=== PATIENT | female | born 1985 | race Caucasian/White ===

== ENCOUNTER 2017-11-16 11:51 | Emergency (ER) | payer MEDICAID ==
[~2017-11-16] VITALS: Ht 167.6 cm; Wt 149.7 kg
[2017-11-16 11:57] VITALS: BP_SYST 171
--- NOTE | 2017-11-16 12:04 | NUR ---
Patient to ER bed 7 to gown for evaluation. Side rails up. Report given to Una ROSE.
--- NOTE | 2017-11-16 12:07 | NUR ---
Pt brought by self,A&Ox4, pt c/o L lower back pain radiating to L knee , denies N/V , denies urinary symptoms at this time but states she had an UTI recently, skin pink and warm, respirations even and unlabored.
--- NOTE | 2017-11-16 12:07 | NUR ---
Dr Anthony at bedside examining patient
--- NOTE | 2017-11-16 12:10 | NUR ---
Pt states she can not urinate at this time, pt has an IUD. MD Dr Anthony agreeable to cover pt for X-ray.
[2017-11-16] MEDS: fentaNYL CITRATE/PF 100 MCG/2 ML AMP IM ONE (12:23)
--- NOTE | 2017-11-16 12:35 | NUR ---
Pt medicated as ordered ,well tolerated.
--- NOTE | 2017-11-16 13:30 | NUR ---
Pt on stable condition, VSS, resting at this time
[2017-11-16] MEDS: ONDANSETRON 4 MG ODT TAB PO ONE (14:32)
[2017-11-16] MEDS: HYDROmorphone 1 MG INJ. 1 MG/ML AMPUL IM ONE (14:37)
[2017-11-16 15:04] VITALS: BP_SYST 137
--- NOTE | 2017-11-16 15:04 | NUR ---
Patient given written and verbal discharge instructions and verbalizes understanding. ER MD discussed with patient the results and treatment provided. Patient in stable condition. ID arm band removed. Rx of Cana, Soma,Motrin given. Patient educated on pain management and to follow up with PMD. Pain Scale 3/10 tolerable for pt. Opportunity for questions provided and answered.
== END 2017-11-16 15:04 | disposition home or self-care (01) ==
LOC: SED 11:51
DX: M54.30 Sciatica, unspecified side (principal)
CPT/HCPCS: 72100; 81025; 96372; 99284; J1170; J3010; Q0162

== ENCOUNTER 2019-11-12 20:42 | Emergency (ER) | payer MEDICAID ==
[~2019-11-12] VITALS: Ht 170.2 cm; Wt 158.8 kg
[2019-11-12 21:31] VITALS: BP_SYST 162
--- NOTE | 2019-11-12 21:37 | NUR ---
Pt to ER waiting room in stable condition.
--- NOTE | 2019-11-12 22:26 | NUR ---
Urine specimen sent to lab.
--- NOTE | 2019-11-12 22:56 | NUR ---
Pt wheeled to bed hallway for evaluation
--- NOTE | 2019-11-13 | NUR ---
Pt C/O Left Knee pain and chronic back pain since Wednesday S/P fall. Pt denies any KO and states she landed directly on her knee. Report increased pain when weight bearing and difficulty ambulating. Denies taking any pain medications for relief, no other complaints at this time. Will continue to monitor.
--- NOTE | 2019-11-13 02:00 | NUR ---
ER Dr. Soni at bedside examining patient.
[2019-11-13] MEDS: KETOROLAC TROMETHAMINE 60 MG/2 ML VIAL IM ONE (02:18)
[2019-11-13 03:34] VITALS: BP_SYST 153
--- NOTE | 2019-11-13 03:39 | NUR ---
Patient given written and verbal discharge instructions and verbalizes understanding. ER MD discussed with patient the results and treatment provided. Patient in stable condition. ID arm band removed. Rx of Motrin and Tylenol given. Patient educated on pain management and to follow up with PMD. Pain Scale 0. Opportunity for questions provided and answered. Medication side effect fact sheet provided.
== END 2019-11-13 03:34 | disposition home or self-care (01) ==
LOC: SED 20:42
DX: S83.91XA Sprain of unspecified site of right knee, initial encounter (principal); W01.0XXA Fall on same level from slipping, tripping and stumbling without subsequent striking against object, initial encounter; Y93.89 Activity, other specified; Y92.89 Other specified places as the place of occurrence of the external cause; Y99.8 Other external cause status
CPT/HCPCS: 29505; 73564; 81025; 96372; 99283; J1885

== ENCOUNTER 2020-04-24 21:19 | Emergency (ER) | payer MEDICAID, SELFPAY ==
[~2020-04-24] VITALS: Ht 167.6 cm; Wt 158.8 kg
[2020-04-24 21:32] VITALS: BP_SYST 182
== END 2020-04-25 | disposition left against medical advice (07) ==
LOC: SED 21:19
DX: B34.9 Viral infection, unspecified (principal); Z20.828 Contact with and (suspected) exposure to other viral communicable diseases
CPT/HCPCS: 81025; 99283; U0003

== ENCOUNTER 2020-04-25 17:10 | Emergency (ER) | payer MEDICAID, SELFPAY ==
[~2020-04-25] VITALS: Ht 167.6 cm; Wt 139.7 kg
--- NOTE | 2020-04-25 17:16 | NUR ---
Patient to ER bed 05 to gown for evaluation. Side rails up.
--- NOTE | 2020-04-25 17:18 | NUR ---
Pt brought by self, A&Ox4, pt presents to ER with headache and bodyaches, ot also c/o high blood pressure, pt was seen yesterday at ER and tested for covid due to exposure, pending results, pt respirations even and unlabored, afebrile, skin pink and warm,denies chest pain, will cont to monitor.
--- NOTE | 2020-04-25 17:25 | NUR ---
Dr Dubose at bedside examining patient
[2020-04-25 17:26] VITALS: BP_SYST 157
[2020-04-25] MEDS ORDERED: LISINOPRIL 10 MG TABLET (PRINIVIL) PO ONE (17:45)
[2020-04-25] MEDS ORDERED: NITROFURANTOIN MONOHYD/M-CRYST 100 MG CAPSULE PO ONE (17:45)
[2020-04-25 18:03] LABS: BASOPHILS # (AUTO) 0.1 K/uL (0.0-0.2); BASOPHILS % (AUTO) 0.8 % (0.0-2.0); EOSINOPHILS # (AUTO) 0.1 K/uL (0.0-0.4); EOSINOPHILS % (AUTO) 1.7 % (0.0-4.0); HEMATOCRIT 41.6 % (36-48); LYMPHOCYTES # (AUTO) 1.5 K/uL (1.0-5.5); LYMPHOCYTES % (AUTO) 23.3 % (20.5-51.5); MEAN CORPUSCULAR HEMOGLOBIN 31 pg (27-31); MEAN CORPUSCULAR HGB CONC 34 % (32-36); MEAN CORPUSCULAR VOLUME 91 fL (79.0-98.0); MONOCYTES # (AUTO) 0.4 K/uL (0.0-1.0); NEUTROPHILS # (AUTO) 4.3 K/uL (1.8-7.7); NEUTROPHILS % (AUTO) 68.2 % (40.0-70.0); PLATELET COUNT (AUTO) 115 K/uL (130-430); RED BLOOD CELL COUNT(AUTO) 4.57 MIL/uL (4.2-6.2); RED CELL DISTRIBUTION WIDTH 13.4 % (9.0-15.0); WHITE BLOOD COUNT (AUTO) 6.3 K/uL (4.8-10.8)
[2020-04-25 18:09] LABS: CALCIUM 8.4 mg/dL (8.4-11.0); CREATININE 0.99 mg/dL (0.55-1.30); POTASSIUM 3.4 mmol/L (3.5-5.1)
[2020-04-25 18:20] LABS: ALBUMIN 3.2 g/dL (3.4-4.8); TOTAL BILIRUBIN 0.4 mg/dL (0.0-1.0)
--- NOTE | 2020-04-25 18:45 | NUR ---
# 20 gauge angiocath placed to right arm . Use of asceptic technique. Opsite placed over site. Blood return noted. Flushed with 10 cc of normal saline. No evidence of infiltration noted. Patient tolerated well.
[2020-04-25] MEDS ORDERED: hydrALAZINE HCL 20 MG/ML VIAL IVP ONE ×2 (19:00→19:45)
[2020-04-25] MEDS ORDERED: ENALAPRILAT DIHYDRATE 1.25 MG/ML VIAL IVP ONE (19:00)
--- NOTE | 2020-04-25 19:00 | NUR ---
Medicated per MD order.
--- NOTE | 2020-04-25 19:13 | NUR ---
endorsed care to Judy ROSE
--- NOTE | 2020-04-25 19:20 | NUR ---
ASSUMED CARE FROM YUMIKO ROSE. PATIENT LYING ON GURNEY IN ROOM 5 ON CELLULAR DEVICE CONNECTED TO TECHNICAL ADMINISTRATOR. PATIENT HAS COMPLAINT OF HYPERTENSION FOR 2 DAYS. PATIENT A&OX4. GCS 15. BILATERAL PUPILS WITH BRISK PERRLA 3/4MM. NO PALENESS NOTED TO CONJUCTIVA OR MUCOUS MEMBRANES. FACIAL SYMMETRY NOTED. NO TRACHEAL DEVIATION NOTED. PATIENT STATES CHEST PRESSURE BUT DENIES CHEST PAIN. LUNGS CTAB WITH NO USE OF ACCESSORY MUSCLES. ABDOMEN SOFT, OBESE AND NONTENDER WITH NORMO-ACTIVE BOWEL SOUNDS AUSCULTATED IN ALL FOUR QUADRANTS. PATIENT DENIES NAUSEA, VOMITING, DIARRHEA, PAIN WITH URINATION AND URINARY FREQUENCY. PMSC NOTED IN ALL FOUR EXTREMITIES. 20G IV THAT FLUSHES WITH EASE NOTED TO RIGHT ARM. ALL OTHER SKIN CLEAN DRY AND INTACT. BED LOCKED, IN LOWEST POSITION WITH SIDE RAILS UP FOR SAFETY. AWAITING FURTHER ORDERS AND WILL CONTINUE TO MONITOR.
--- NOTE | 2020-04-25 19:47 | NUR ---
PATIENT MEDICATED PER MD ORDERS FOR BLOOD PRESSURE OF 180/103MMHG.
[2020-04-25 20:35] VITALS: BP_SYST 120
--- NOTE | 2020-04-25 20:35 | NUR ---
Patient given written and verbal discharge instructions and verbalizes understanding. ER MD SHERIDAN discussed with patient the results and treatment provided. Patient in stable condition. ID arm band removed. IV catheter removed intact and dressing applied, no active bleeding. Rx of NORVASC AND LISINOPRIL given. Patient educated on pain management and to follow up with PMD. Pain Scale 0/10. Opportunity for questions provided and answered. Medication side effect fact sheet provided.
== END 2020-04-25 20:35 | disposition home or self-care (01) ==
LOC: SED 17:10
DX: Z03.818 Encounter for observation for suspected exposure to other biological agents ruled out (principal)
CPT/HCPCS: 36415; 71045; 80053; 85025; 93005; 96374; 96375; 96376; 99285; J0360

== ENCOUNTER 2021-11-08 17:01 | Emergency (ER) | payer MEDICAID, SELFPAY ==
[~2021-11-08] VITALS: Ht 170.2 cm; Wt 158.8 kg
--- NOTE | 2021-11-08 17:01 | NUR ---
Pt brought by self, A&Ox4, pt presents to ER with headache, states possible high blood pressure and cough, pt afebrile,skin pink and warm, cap refill <3, VSS, respirations even and unlabored.
[2021-11-08 17:30] VITALS: BP_SYST 159
--- NOTE | 2021-11-08 17:36 | NUR ---
covid chris swab performed outside in tent and sent to lab
--- NOTE | 2021-11-08 17:50 | NUR ---
Dr Dubose evaluating patient in the tent
[2021-11-08] MEDS ORDERED: LISINOPRIL 10 MG TABLET (PRINIVIL) PO ONE (18:00)
[2021-11-08] MEDS ORDERED: LISINOPRIL 10 MG TABLET (PRINIVIL) ONE (18:03)
[2021-11-08] MEDS ORDERED: LISI20TA30 PO (18:07)
[2021-11-08 19:44] VITALS: BP_SYST 150
--- NOTE | 2021-11-08 19:46 | NUR ---
Patient given written and verbal discharge instructions and verbalizes understanding. ER MD discussed with patient the results and treatment provided. Patient in stable condition. ID arm band removed. Rx of lisinopril given. Patient educated on pain management and to follow up with PMD. Pain Scale 0/10. Opportunity for questions provided and answered. Medication side effect fact sheet provided.
== END 2021-11-08 19:46 | disposition home or self-care (01) ==
LOC: SED 17:01
DX: R51.9 Headache, unspecified (principal); I10 Essential (primary) hypertension; Z20.822 Contact with and (suspected) exposure to COVID-19
CPT/HCPCS: 36415; 99283

== ENCOUNTER 2022-08-21 15:52 | Emergency (ER) | payer MEDICAID ==
[~2022-08-21] VITALS: Ht 170.2 cm; Wt 158.8 kg
[~2022-08-21 15:52] MED LIST: LISI20TA30 PO
[2022-08-21 16:34] VITALS: BP_SYST 162
[2022-08-21] MEDS ORDERED: DEXAMETHASONE SOD PHOSPHATE 10 MG/ML VIAL IM ONE (18:45)
[2022-08-21] MEDS ORDERED: FAMOTIDINE 20 MG TABLET PO ONE (19:00)
== END 2022-08-21 20:10 | disposition home or self-care (01) ==
LOC: SED 15:52
DX: T78.40XA Allergy, unspecified, initial encounter (principal); R22.0 Localized swelling, mass and lump, head; Z79.899 Other long term (current) drug therapy; X58.XXXA Exposure to other specified factors, initial encounter
CPT/HCPCS: 99283; 96372; J1100

== ENCOUNTER 2023-03-01 17:55 | Emergency (ER) | payer MEDICAID ==
[~2023-03-01] VITALS: Ht 170.2 cm; Wt 176.9 kg
[2023-03-01 17:58] VITALS: BP_SYST 162
--- NOTE | 2023-03-01 18:06 | NUR ---
SEEN BY ERMD AT THIS TIME
--- NOTE | 2023-03-01 18:10 | NUR ---
Pt BIB self. C/O high blood pressure. Pt has hx of HTN but does not take RX as prescribed. pt AAOX4. does not complain of pain. denies SOB. denies chest pain. pt has steady gait. skin dry and intact. PERRLA. pt in bed with side rails up.
--- NOTE | 2023-03-01 18:12 | NUR ---
ER at bedside examining patient.
[2023-03-01] MEDS ORDERED: LISI20TA30 PO (18:55)
--- NOTE | 2023-03-01 19:08 | NUR ---
Patient given written and verbal discharge instructions and verbalizes understanding. ER MD discussed with patient the results and treatment provided. Patient in stable condition. ID arm band removed. Rx of LISINOPRIL given. Patient educated on pain management and to follow up with PMD. Opportunity for questions provided and answered. Medication side effect fact sheet provided.
[2023-03-01 19:09] VITALS: BP_SYST 162
== END 2023-03-01 19:09 | disposition home or self-care (01) ==
LOC: SED 17:55
DX: I10 Essential (primary) hypertension (principal); R51.9 Headache, unspecified; R20.2 Paresthesia of skin; E66.9 Obesity, unspecified; Z68.44 Body mass index [BMI] 60.0-69.9, adult; Z79.899 Other long term (current) drug therapy
CPT/HCPCS: 99283

== ENCOUNTER 2023-03-27 19:41 | Emergency (ER) | payer MEDICAID ==
[~2023-03-27] VITALS: Ht 170.2 cm; Wt 176.9 kg
[2023-03-27] MEDS ORDERED: HYDROcodone/ACETAMIN 5-325 MG TAB (NORCO/ VICODIN) PO ONE (20:00)
[2023-03-27] MEDS ORDERED: KETOROLAC TROMETHAMINE 60 MG/2 ML VIAL IM ONE (20:00)
[2023-03-27 20:20] LABS: BASOPHILS # (AUTO) 0.1 K/uL (0.0-0.2); EOSINOPHILS # (AUTO) 0.2 K/uL (0.0-0.4); EOSINOPHILS % (AUTO) 2.4 % (0.0-4.0); HEMATOCRIT 41.7 % (36-48); HEMOGLOBIN 14.6 g/dL (12.0-16.0); LYMPHOCYTES # (AUTO) 1.5 K/uL (1.0-5.5); LYMPHOCYTES % (AUTO) 16.2 % (20.5-51.5); MEAN CORPUSCULAR HEMOGLOBIN 31 pg (27-31); MEAN CORPUSCULAR HGB CONC 35 % (32-36); MEAN CORPUSCULAR VOLUME 89 fL (79.0-98.0); MONOCYTES # (AUTO) 0.5 K/uL (0.0-1.0); MONOCYTES % (AUTO) 5.7 % (1.7-9.3); NEUTROPHILS # (AUTO) 6.8 K/uL (1.8-7.7); NEUTROPHILS % (AUTO) 74.7 % (40.0-70.0); PLATELET COUNT (AUTO) 244 K/uL (130-430); RED BLOOD CELL COUNT(AUTO) 4.69 MIL/uL (4.2-6.2); RED CELL DISTRIBUTION WIDTH 13.6 % (9.0-15.0); WHITE BLOOD COUNT (AUTO) 9.1 K/uL (4.8-10.8)
--- NOTE | 2023-03-27 20:20 | NUR ---
Patient to ER bed 03 to gown for evaluation. Side rails up. Report given to ROSE GUADARRAMA.
[2023-03-27 20:25] LABS: ANION GAP 8 (5-15); CALCIUM 7.9 mg/dL (8.4-11.0); CHLORIDE 103 mmol/L (98-107); CREATININE 0.83 mg/dL (0.55-1.30); GFR AFRICAN AMERICAN 100 mL/min (>90); GLUCOSE 153 mg/dL (70-99); UREA NITROGEN, BLOOD 10 mg/dL (8-21)
[2023-03-27 20:39] LABS: ALANINE AMINOTRANSFERASE 30 U/L (12-78); ALBUMIN 3.4 g/dL (3.4-4.8); ASPARTATE AMINOTRANSFERASE 12 U/L (10-37); TOTAL BILIRUBIN 0.3 mg/dL (0.0-1.0)
--- NOTE | 2023-03-27 20:40 | NUR ---
PT CONNECTED TO VS MONITOR, NAD, EVEN UNLABORED RR, URINE COLLECTED AND NEGATIVE AWAITING CT RESULTS BED LOWEST POSITION, 22G IV TO RIGHT HAND,
[2023-03-27] MEDS ORDERED: hydrALAZINE HCL 20 MG/ML VIAL IVP ONE (20:45)
[2023-03-27] MEDS ORDERED: ONDANSETRON HCL 4 MG/2 ML VIAL IVP ONE (20:45)
[2023-03-27] MEDS ORDERED: NS 500 ML IV ONE (20:45)
[2023-03-27] MEDS ORDERED: NACL 0.9% 1,000 ML IV ONE (20:45)
[2023-03-27] MEDS ORDERED: KETOROLAC TROMETHAMINE 30 MG VIAL IVP ONE (20:45)
--- NOTE | 2023-03-27 21:00 | NUR ---
ER Dr.DE MUÑOZ at bedside examining patient.
[2023-03-27] MEDS ORDERED: MORPHINE 4 MG INJ. 4 MG/ML VIAL IVP ONE (23:15)
[2023-03-27] MEDS ORDERED: HYDR-3917 PO (23:27)
[2023-03-27] MEDS ORDERED: MECL-225 PO (23:27)
[2023-03-28 00:11] VITALS: BP_SYST 163
--- NOTE | 2023-03-28 00:13 | NUR ---
Patient given written and verbal discharge instructions and verbalizes understanding. ER MD discussed with patient the results and treatment provided. Patient in stable condition. ID arm band removed. IV catheter removed intact and dressing applied, no active bleeding. Rx of NORCO, MECLIZINE HCL given. Patient educated on VERTIGO, MIGRAINE HEAD pain management and to follow up with PMD. Pain Scale . Opportunity for questions provided and answered. Medication side effect fact sheet provided.
== END 2023-03-28 00:11 | disposition home or self-care (01) ==
LOC: SED 19:41
DX: R51.9 Headache, unspecified (principal); H81.399 Other peripheral vertigo, unspecified ear; I10 Essential (primary) hypertension; Z79.899 Other long term (current) drug therapy
CPT/HCPCS: 99285; 96374; 96375; 70450; 96361; 80053; 85025; 84484; 36415; 93005; 76376; 81025; J0360; J1885; J2405; J2270; J7030

== ENCOUNTER 2023-07-19 20:55 | Emergency (ER) | payer MEDICAID ==
[~2023-07-19] VITALS: Ht 170.2 cm; Wt 181.4 kg
[~2023-07-19 20:55] MED LIST changes: +HYDR-3917 PO; +MECL-225 PO
[2023-07-19 21:06] VITALS: BP_SYST 191; PULSE 94; RESP 20; TEMP 97.8; O2SAT 97
[2023-07-19] MEDS ORDERED: NAPR-690 PO (22:51)
[2023-07-19 23:05] VITALS: BP_SYST 185; PULSE 92; RESP 20; TEMP 98.3; O2SAT 97
[2023-07-19] MEDS ORDERED: KETOROLAC TROMETHAMINE 60 MG/2 ML VIAL IM ONE ×2 (23:07→23:15)
== END 2023-07-19 23:05 | disposition home or self-care (01) ==
LOC: SED 20:55
DX: S83.91XA Sprain of unspecified site of right knee, initial encounter (principal); I10 Essential (primary) hypertension; E66.01 Morbid (severe) obesity due to excess calories; Z68.30 Body mass index [BMI] 30.0-30.9, adult; Z79.899 Other long term (current) drug therapy; W19.XXXA Unspecified fall, initial encounter; Y93.89 Activity, other specified; Y92.89 Other specified places as the place of occurrence of the external cause; Y99.8 Other external cause status
CPT/HCPCS: 99285; 93971; 73564; 96372; J1885

== ENCOUNTER 2023-10-28 15:47 | Emergency (ER) | payer MEDICAID ==
[~2023-10-28] VITALS: Ht 170.2 cm; Wt 181.4 kg
[~2023-10-28 15:47] MED LIST changes: +NAPR-690 PO
[2023-10-28 15:53] VITALS: BP_SYST 179; PULSE 86; RESP 16; TEMP 98.5; O2SAT 97
[2023-10-28 16:58] LABS: BASOPHILS # (AUTO) 0.1 K/uL (0.0-0.2); HEMOGLOBIN 14.4 g/dL (12.0-16.0); LYMPHOCYTES % (AUTO) 16.1 % (20.5-51.5); MONOCYTES # (AUTO) 0.6 K/uL (0.0-1.0); NEUTROPHILS % (AUTO) 74.9 % (40.0-70.0)
[2023-10-28 17:05] LABS: EOSINOPHILS # (AUTO) 0.2 K/uL (0.0-0.4); EOSINOPHILS % (AUTO) 2.2 % (0.0-4.0); HEMATOCRIT 41.9 % (36-48); LYMPHOCYTES # (AUTO) 1.8 K/uL (1.0-5.5); MEAN CORPUSCULAR HEMOGLOBIN 30 pg (27-31); MEAN CORPUSCULAR HGB CONC 34 % (32-36); MEAN CORPUSCULAR VOLUME 88 fL (79.0-98.0); MONOCYTES % (AUTO) 5.8 % (1.7-9.3); NEUTROPHILS # (AUTO) 8.2 K/uL (1.8-7.7); PLATELET COUNT (AUTO) 306 K/uL (130-430); RED BLOOD CELL COUNT(AUTO) 4.76 MIL/uL (4.2-6.2); RED CELL DISTRIBUTION WIDTH 14.2 % (9.0-15.0); WHITE BLOOD COUNT (AUTO) 10.9 K/uL (4.8-10.8)
[2023-10-28 17:27] LABS: ANION GAP 7 (5-15); CALCIUM 8.3 mg/dL (8.4-11.0); CARBON DIOXIDE 28 mmol/L (23-29); CHLORIDE 104 mmol/L (98-107); CREATININE 0.87 mg/dL (0.55-1.30); GFR AFRICAN AMERICAN 94 mL/min (>90); GLUCOSE 151 mg/dL (74-106); SODIUM SERUM 139 mmol/L (136-145); UREA NITROGEN, BLOOD 14 mg/dL (8-21)
[2023-10-28 17:29] LABS: GFR NON AFRICAN-AMERICAN 78 mL/min (>90)
[2023-10-28] MEDS ORDERED: PRED20TA PO (17:38)
[2023-10-28] MEDS ORDERED: ACYC-133 PO (17:38)
[2023-10-28] MEDS ORDERED: TRAM50TA2 PO (17:56)
[2023-10-28 18:18] VITALS: BP_SYST 174; PULSE 81; RESP 15; TEMP 98.5; O2SAT 98
== END 2023-10-28 18:05 | disposition home or self-care (01) ==
LOC: SED 15:47
DX: G51.0 Bell's palsy (principal); R20.2 Paresthesia of skin; I10 Essential (primary) hypertension; Z79.899 Other long term (current) drug therapy
CPT/HCPCS: 36415; 70450-TC; 76376; 80048; 84484; 85025; 99284